=== PATIENT | female | born 1930 | race Caucasian/White ===

== ENCOUNTER 2017-08-12 21:01 | Inpatient (IN) | payer MEDICARE, OTHER ==
[~2017-08-12] VITALS: Ht 162.6 cm; Wt 66.8 kg
[~2017-08-12 21:01] MED LIST: AZEL137S NS; AZIT250 PO; BUDE200IP INH; CALCAVITDA PO; CETI10 PO; CITA20 PO; CLON1 PO; CLOP75 PO; CRUTCH2 USE; ESOM20 PO; EZET10 PO; FENO160 PO; FURO20 PO; HYDACE5 PO; HYDR10 PO; LEVO750 PO; LEVSOD88 PO; LISI20 PO; MOEX15 PO; Mucinex600 MG PO; NIFE30ER PO; Prednisone20 MG PO; SALM50IP INH; TERA5 PO; TIOT18 INH; TRAZ50 PO; VERA180ERB PO; VERAPAMIL SR240 MG PO; VITAMINS
[2017-08-12 22:20] LABS: BASOPHILS ABSOLUTE AUTO 0.02 K/mm3 (0.00-0.23); BASOPHILS PERCENT AUTO 0 % (0-2); EOSINOPHILS ABSOLUTE AUTO 0.05 K/mm3 (0.00-0.68); EOSINOPHILS PERCENT AUTO 1 % (0-6); Hematocrit 34.4 % (33.0-51.0); Hemoglobin 10.6 g/dL (11.5-16.0); IMMATURE GRAN ABSOLUTE AUTO 0.01 K/mm3 (0.00-0.10); IMMATURE GRAN PERCENT AUTO 0 % (0-1); LYMPHOCYTES ABSOLUTE AUTO 0.65 K/mm3 (0.84-5.20); LYMPHOCYTES PERCENT AUTO 11 % (21-46); MONOCYTES ABSOLUTE AUTO 1.11 K/mm3 (0.16-1.47); MONOCYTES PERCENT AUTO 19 % (4-13); Mean Corpuscular HGB 26.6 pg (26.0-34.0); Mean Corpuscular HGB Conc 30.8 g/dL (31.5-36.5); Mean Corpuscular Volume 86 fL (80-100); Mean Platelet Volume 9.9 fL (9.1-12.4); NEUTROPHILS ABSOLUTE AUTO 3.92 K/mm3 (1.96-9.15); NEUTROPHILS PERCENT AUTO 68 % (41-73); Platelet Count 165 K/mm3 (150-400); RDW Coefficient Variation 17.8 % (11.7-14.2); RDW Standard Deviation 56.9 fL (35.1-46.3); Red Blood Cell Count 3.98 M/mm3 (3.80-5.20); White Blood Cell Count 5.76 K/mm3 (4.00-11.30)
[2017-08-12] MEDS ORDERED: CLOP75 PO (22:20)
[2017-08-12] MEDS ORDERED: CLON1 PO (22:20)
[2017-08-12] MEDS ORDERED: TIOT18 INH (22:20)
[2017-08-12] MEDS ORDERED: BIOTIN1000 MCG PO (22:21)
[2017-08-12] MEDS ORDERED: Cranberry400 MG PO (22:21)
[2017-08-12] MEDS ORDERED: MOVE FREE JOIN1 EACH PO (22:22)
[2017-08-12] MEDS ORDERED: VITAMIN D31000 UNIT PO (22:22)
[2017-08-12] MEDS ORDERED: PROBIOTIC1 EAC1 PO (22:23)
[2017-08-12] MEDS ORDERED: EQ SENNA-S TAB1 EACH PO (22:23)
[2017-08-12] MEDS ORDERED: SALM50IP INH (22:24)
[2017-08-12] MEDS ORDERED: ESOM20 PO (22:25)
[2017-08-12] MEDS ORDERED: TRAZ50 PO (22:25)
[2017-08-12] MEDS ORDERED: Pulmicort Fle180 MCG INH (22:25)
[2017-08-12] MEDS ORDERED: LEVSOD100 PO (22:26)
[2017-08-12] MEDS ORDERED: ALBU90OI6 INH (22:27)
[2017-08-12] MEDS ORDERED: Icaps Areds Fo1 EACH PO (22:28)
[2017-08-12] MEDS ORDERED: FISH OIL 1,2001 EAC4 PO (22:28)
[2017-08-12] MEDS ORDERED: NIFE30ER PO (22:29)
[2017-08-12] MEDS ORDERED: LISI20 PO (22:29)
[2017-08-12] MEDS ORDERED: FURO40 PO (22:29)
[2017-08-12] MEDS ORDERED: OXYGEN (22:30)
[2017-08-12] MEDS ORDERED: Metoprolol Succ25 MG PO (22:30)
[2017-08-12 22:44] LABS: Anion Gap 9 mmol/L (6-16); Blood Urea Nitrogen 17 mg/dL (8-24); CO2, Blood 23 mmol/L (21-32); Calcium, Blood 7.1 mg/dL (8.5-10.1); Chloride, Blood 102 mmol/L (98-108); Creatinine, Blood 1.13 mg/dL (0.40-1.00); Glomerular Filtration Rate 48 (60-); Glucose, Blood 102 mg/dL (70-99); Potassium, Blood 4.7 mmol/L (3.5-5.5); Sodium, Blood 134 mmol/L (136-145); Troponin I <0.015 ng/mL (0.000-0.040)
[2017-08-12 23:34] LABS: Influenza A Negative (NEGATIVE); Influenza B Negative (NEGATIVE)
[2017-08-13] MEDS ORDERED: Citalopram HBr40 MG PO (12:29)
[2017-08-14 05:13] LABS: BASOPHILS PERCENT AUTO 0 % (0-2); EOSINOPHILS PERCENT AUTO 0 % (0-6); Hemoglobin 9.3 g/dL (11.5-16.0); IMMATURE GRAN ABSOLUTE AUTO 0.04 K/mm3 (0.00-0.10); IMMATURE GRAN PERCENT AUTO 1 % (0-1); LYMPHOCYTES ABSOLUTE AUTO 0.61 K/mm3 (0.84-5.20); LYMPHOCYTES PERCENT AUTO 8 % (21-46); MONOCYTES ABSOLUTE AUTO 0.88 K/mm3 (0.16-1.47); MONOCYTES PERCENT AUTO 11 % (4-13); Mean Corpuscular HGB 26.4 pg (26.0-34.0); Mean Corpuscular Volume 85 fL (80-100); Mean Platelet Volume 9.8 fL (9.1-12.4); NEUTROPHILS ABSOLUTE AUTO 6.58 K/mm3 (1.96-9.15); NEUTROPHILS PERCENT AUTO 81 % (41-73); Platelet Count 164 K/mm3 (150-400); RDW Coefficient Variation 17.4 % (11.7-14.2); RDW Standard Deviation 54.4 fL (35.1-46.3); Red Blood Cell Count 3.52 M/mm3 (3.80-5.20); White Blood Cell Count 8.11 K/mm3 (4.00-11.30)
[2017-08-14 05:44] LABS: Bun/Creatinine Ratio 28.2 (12.0-20.0); Creatinine, Blood 1.03 mg/dL (0.40-1.00); Potassium, Blood 4.8 mmol/L (3.5-5.5)
[2017-08-14] MEDS ORDERED: AZIT500 PO (09:33)
[2017-08-14] MEDS ORDERED: (None)20 M1 PO (09:33)
== END 2017-08-14 11:20 | disposition home or self-care (01) | DRG 189 ==
LOC: ER 21:01 → MEDS 08-13 00:18 → ENPENDDIS 08-14 09:00 → MEDS 08-14 11:20
PROVIDERS: Emergency Medicine; Internal Medicine
DX: J96.01 Acute respiratory failure with hypoxia (principal); J44.0 Chronic obstructive pulmonary disease with (acute) lower respiratory infection; E87.1 Hypo-osmolality and hyponatremia; Z99.81 Dependence on supplemental oxygen; J44.1 Chronic obstructive pulmonary disease with (acute) exacerbation; J20.9 Acute bronchitis, unspecified; K21.9 Gastro-esophageal reflux disease without esophagitis; I12.9 Hypertensive chronic kidney disease with stage 1 through stage 4 chronic kidney disease, or unspecified chronic kidney disease; N18.3 Chronic kidney disease, stage 3 (moderate); E03.9 Hypothyroidism, unspecified; F41.9 Anxiety disorder, unspecified; Z66 Do not resuscitate; Z85.528 Personal history of other malignant neoplasm of kidney; Z90.5 Acquired absence of kidney; Z79.02 Long term (current) use of antithrombotics/antiplatelets; Z79.899 Other long term (current) drug therapy; Z87.891 Personal history of nicotine dependence
CPT/HCPCS: 36415; 71046; 80048; 84145; 84484; 85025; 87804; 93005; 93010; 94640; 94760; 96375; 99285; J0456; J2920; J2930; J7050

== ENCOUNTER → 2017-08-21 | Outpatient (CLI) | payer MEDICARE, OTHER ==
[~2017-08-21] MED LIST changes: +(None)20 M1 PO; +ALBU90OI6 INH; +AZIT500 PO; +BIOTIN1000 MCG PO; +COLE1 PO; +Citalopram HBr40 MG PO; +Cranberry400 MG PO; +EQ SENNA-S TAB1 EACH PO; +FISH OIL 1,2001 EAC4 PO; +FURO40 PO; +Icaps Areds Fo1 EACH PO; +LEVSOD100 PO; +MOVE FREE JOIN1 EACH PO; +Metoprolol Succ25 MG PO; +OXYGEN; +PROBIOTIC1 EAC1 PO; +Percocet 5-3251 EACH PO; +Pulmicort Fle180 MCG INH; +VITAMIN D31000 UNIT PO; +Zofran Odt4 MG SL
== END ==
LOC: LAB 10:20
DX: J02.9 Acute pharyngitis, unspecified (principal)
CPT/HCPCS: 87070

== ENCOUNTER 2017-12-25 02:26 | Emergency (ER) | payer MEDICARE, OTHER ==
[~2017-12-25] VITALS: Ht 162.6 cm; Wt 61.7 kg
[~2017-12-25 02:26] MED LIST changes: -COLE1 PO; -Percocet 5-3251 EACH PO; -Zofran Odt4 MG SL
[2017-12-25] MEDS ORDERED: COLE1 PO (03:16)
[2017-12-25] MEDS ORDERED: Zofran Odt4 MG SL (04:46)
[2017-12-25] MEDS ORDERED: Percocet 5-3251 EACH PO (04:46)
== END 2017-12-25 05:45 | disposition home or self-care (01) ==
LOC: ER 02:26
DX: S52.532A Colles' fracture of left radius, initial encounter for closed fracture (principal); S52.602A Unspecified fracture of lower end of left ulna, initial encounter for closed fracture; I10 Essential (primary) hypertension; J44.9 Chronic obstructive pulmonary disease, unspecified; K21.9 Gastro-esophageal reflux disease without esophagitis; Z88.8 Allergy status to other drugs, medicaments and biological substances; Z88.6 Allergy status to analgesic agent; Z88.1 Allergy status to other antibiotic agents; Z88.0 Allergy status to penicillin; Z88.2 Allergy status to sulfonamides; Z79.899 Other long term (current) drug therapy; Z87.891 Personal history of nicotine dependence; W18.30XA Fall on same level, unspecified, initial encounter
CPT/HCPCS: 25605; 73100; 73110; 96361; 96374; 99152; 99284; J1885; J7030

== ENCOUNTER 2017-12-27 10:58 | Emergency (ER) | payer MEDICARE, OTHER ==
[~2017-12-27] VITALS: Ht 162.6 cm; Wt 62.6 kg
[~2017-12-27 10:58] MED LIST changes: +COLE1 PO; +Percocet 5-3251 EACH PO; +Zofran Odt4 MG SL
[2017-12-27] MEDS ORDERED: Percocet 5-3251 EACH PO (12:39)
== END 2017-12-27 12:50 | disposition home or self-care (01) ==
LOC: ER 10:58
DX: S52.532D Colles' fracture of left radius, subsequent encounter for closed fracture with routine healing (principal); X58.XXXD Exposure to other specified factors, subsequent encounter; Z88.5 Allergy status to narcotic agent; Z88.8 Allergy status to other drugs, medicaments and biological substances; Z88.0 Allergy status to penicillin; Z88.2 Allergy status to sulfonamides; Z88.1 Allergy status to other antibiotic agents; Z79.899 Other long term (current) drug therapy; I10 Essential (primary) hypertension; J44.9 Chronic obstructive pulmonary disease, unspecified; K21.9 Gastro-esophageal reflux disease without esophagitis; Z87.891 Personal history of nicotine dependence

== ENCOUNTER 2017-12-28 01:09 | Emergency (ER) | payer MEDICARE, OTHER ==
[~2017-12-28] VITALS: Ht 162.6 cm; Wt 64.4 kg
== END 2017-12-28 03:10 | disposition home or self-care (01) ==
LOC: ER 01:09
DX: S09.90XA Unspecified injury of head, initial encounter (principal); S52.532D Colles' fracture of left radius, subsequent encounter for closed fracture with routine healing; W01.198A Fall on same level from slipping, tripping and stumbling with subsequent striking against other object, initial encounter; Z88.5 Allergy status to narcotic agent; Z88.8 Allergy status to other drugs, medicaments and biological substances; Z88.2 Allergy status to sulfonamides; Z88.1 Allergy status to other antibiotic agents; Z79.899 Other long term (current) drug therapy; I10 Essential (primary) hypertension; J44.9 Chronic obstructive pulmonary disease, unspecified; Z87.891 Personal history of nicotine dependence
CPT/HCPCS: 36415; 70450; 73110; 93005; 93010; 99284

== ENCOUNTER → 2019-01-08 | Outpatient (CLI) | payer MEDICARE, OTHER ==
[2019-01-08 16:35] LABS: BASOPHILS ABSOLUTE AUTO 0.03 K/mm3 (0.00-0.23); BASOPHILS PERCENT AUTO 0 % (0-2); EOSINOPHILS ABSOLUTE AUTO 0.15 K/mm3 (0.00-0.68); EOSINOPHILS PERCENT AUTO 2 % (0-6); Hematocrit 34.8 % (33.0-51.0); Hemoglobin 11.2 g/dL (11.5-16.0); IMMATURE GRAN ABSOLUTE AUTO 0.02 K/mm3 (0.00-0.10); IMMATURE GRAN PERCENT AUTO 0 % (0-1); LYMPHOCYTES ABSOLUTE AUTO 0.79 K/mm3 (0.84-5.20); LYMPHOCYTES PERCENT AUTO 10 % (21-46); MONOCYTES ABSOLUTE AUTO 1.49 K/mm3 (0.16-1.47); MONOCYTES PERCENT AUTO 19 % (4-13); Mean Corpuscular HGB 28.8 pg (26.0-34.0); Mean Corpuscular HGB Conc 32.2 g/dL (31.5-36.5); Mean Corpuscular Volume 90 fL (80-100); Mean Platelet Volume 10.1 fL (9.1-12.4); NEUTROPHILS ABSOLUTE AUTO 5.54 K/mm3 (1.96-9.15); NEUTROPHILS PERCENT AUTO 69 % (41-73); Platelet Count 230 K/mm3 (150-400); RDW Coefficient Variation 13.6 % (11.7-14.2); RDW Standard Deviation 44.9 fL (35.1-46.3); Red Blood Cell Count 3.89 M/mm3 (3.80-5.20); White Blood Cell Count 8.02 K/mm3 (4.00-11.30)
[2019-01-08 16:39] LABS: Bun/Creatinine Ratio 18.7 (12.0-20.0); Calcium, Blood 8.5 mg/dL (8.5-10.1); Creatinine, Blood 1.5 mg/dL (0.40-1.00); Potassium, Blood 4.7 mmol/L (3.5-5.5)
== END | disposition home or self-care (01) ==
LOC: LAB EV 16:29 → LAB SHORT 16:29
PROVIDERS: Family Medicine
DX: J18.0 Bronchopneumonia, unspecified organism (principal)
CPT/HCPCS: 80048; 85025; 87040

== ENCOUNTER 2019-08-21 13:15 | Inpatient (IN) | payer MEDICARE, OTHER ==
[~2019-08-21] VITALS: Ht 162.6 cm; Wt 65.8 kg
[~2019-08-21 13:15] MED LIST changes: -ALBU90OI6 INH; -Citalopram HBr40 MG PO; -Cranberry400 MG PO; -FURO40 PO; -LEVSOD100 PO; -Metoprolol Succ25 MG PO; -Pulmicort Fle180 MCG INH; -VITAMIN D31000 UNIT PO
[2019-08-21 13:42] LABS: BASOPHILS ABSOLUTE AUTO 0.02 K/mm3 (0.00-0.23); BASOPHILS PERCENT AUTO 0 % (0-2); EOSINOPHILS ABSOLUTE AUTO 0.09 K/mm3 (0.00-0.68); EOSINOPHILS PERCENT AUTO 1 % (0-6); Hematocrit 35.6 % (33.0-51.0); IMMATURE GRAN ABSOLUTE AUTO 0.02 K/mm3 (0.00-0.10); IMMATURE GRAN PERCENT AUTO 0 % (0-1); LYMPHOCYTES PERCENT AUTO 20 % (21-46); MONOCYTES ABSOLUTE AUTO 1.07 K/mm3 (0.16-1.47); MONOCYTES PERCENT AUTO 14 % (4-13); Mean Corpuscular HGB 29.3 pg (26.0-34.0); Mean Corpuscular HGB Conc 30.9 g/dL (31.5-36.5); Mean Corpuscular Volume 95 fL (80-100); Mean Platelet Volume 10.4 fL (9.1-12.4); NEUTROPHILS ABSOLUTE AUTO 4.97 K/mm3 (1.96-9.15); NEUTROPHILS PERCENT AUTO 65 % (41-73); Platelet Count 222 K/mm3 (150-400); RDW Coefficient Variation 13.9 % (11.7-14.2); RDW Standard Deviation 47.3 fL (35.1-46.3); Red Blood Cell Count 3.76 M/mm3 (3.80-5.20); White Blood Cell Count 7.67 K/mm3 (4.00-11.30)
[2019-08-21 14:01] LABS: Albumin, Blood 3.4 g/dL (3.4-5.0); Albumin/Globulin Ratio 0.9 (0.8-1.8); Bilirubin, Total 0.3 mg/dL (0.1-1.0); Bun/Creatinine Ratio 20.5 (12.0-20.0); Calcium, Blood 8.8 mg/dL (8.5-10.1); Creatinine, Blood 1.61 mg/dL (0.40-1.00); Globulin, Blood 3.6 g/dL (2.2-4.0); Potassium, Blood 4.3 mmol/L (3.5-5.5)
[2019-08-21 14:30] LABS: Troponin I 4.34 ng/mL (0.000-0.040)
[2019-08-21] MEDS ORDERED: CLON1 PO (15:35)
[2019-08-21] MEDS ORDERED: CLOP75 PO (15:35)
[2019-08-21] MEDS ORDERED: Metoprolol Succ25 MG PO (15:35)
[2019-08-21] MEDS ORDERED: Citalopram HBr40 MG PO (15:36)
[2019-08-21] MEDS ORDERED: EUTHYROX88 MCG PO (15:36)
[2019-08-21] MEDS ORDERED: NIFE30ER PO (15:37)
[2019-08-21] MEDS ORDERED: FURO40 PO (15:39)
[2019-08-21] MEDS ORDERED: CALC.25 PO (15:41)
[2019-08-21 15:50] LABS: International Normalized Ratio 0.98; Prothrombin Time Results 10.5 Sec (9.7-11.5)
--- NOTE | 2019-08-21 16:35 | NUR ---
Echocardiogram completed.
[2019-08-21] MEDS ORDERED: TIOT18 INH (17:36)
[2019-08-21] MEDS ORDERED: VITAMIN D31000 UNIT PO (17:36)
[2019-08-21] MEDS ORDERED: Cranberry400 MG PO (17:36)
[2019-08-21] MEDS ORDERED: SALM50IP INH (17:37)
[2019-08-21] MEDS ORDERED: ALBU90OI6 INH (17:38)
[2019-08-21] MEDS ORDERED: Nexium40 MG PO (17:38)
[2019-08-21] MEDS ORDERED: Pulmicort Fle180 MCG INH (17:38)
[2019-08-21] MEDS ORDERED: Aranesp40 MCG/11 SC (17:44)
[2019-08-21] MEDS ORDERED: MAGNESIUM OXID500 MG PO (17:45)
[2019-08-21] MEDS ORDERED: ASCO500 PO (17:45)
[2019-08-21] MEDS ORDERED: Biotin1 MG PO (17:45)
[2019-08-21] MEDS ORDERED: CALCITRATE200 MG PO (17:46)
[2019-08-21] MEDS ORDERED: CENTRUM SILVER1 EAC2 PO (17:46)
--- NOTE | 2019-08-21 19:16 | NUR ---
TO ICU 2 FROM ER 1820, DENIES CHEST PAIN AT THIS TIME, REPORTS MILD SOB. VSS, HR 70'S SINUS, LS CLEAR, BT+, NO EDEMA NOTED, PPP. PT ALERT AND ORIENTED X4, APPROPRIATE AND COOPERATVE. HEPARIN INFUSING AT 13U/KG/HR FOR DOSING WEIGHT OF 63. PT GIVEN DINNER, WILL BE NPO AFTER MIDNIGHT FOR PLANNED ANGIO IN AM. DAUGHTER IN LAW AT BEDSIDE, REPORT TO ONCOMING SHIFT.
[2019-08-22 05:14] LABS: Hematocrit 30.7 % (33.0-51.0); Hemoglobin 9.5 g/dL (11.5-16.0); Mean Corpuscular HGB 29.7 pg (26.0-34.0); Mean Corpuscular HGB Conc 30.9 g/dL (31.5-36.5); Mean Corpuscular Volume 96 fL (80-100); Mean Platelet Volume 10.2 fL (9.1-12.4); Platelet Count 178 K/mm3 (150-400); RDW Coefficient Variation 13.7 % (11.7-14.2); RDW Standard Deviation 47.9 fL (35.1-46.3); White Blood Cell Count 5.85 K/mm3 (4.00-11.30)
[2019-08-22 05:36] LABS: Anion Gap 5 mmol/L (6-16); Blood Urea Nitrogen 33 mg/dL (8-24); Bun/Creatinine Ratio 18.5 (12.0-20.0); CHOL/HDL RATIO 3.8; CO2, Blood 26 mmol/L (21-32); Calcium, Blood 8.3 mg/dL (8.5-10.1); Chloride, Blood 107 mmol/L (98-108); Cholesterol 157 mg/dL (50-200); Creatinine, Blood 1.78 mg/dL (0.40-1.00); Glomerular Filtration Rate 29 (60-); Glucose, Blood 102 mg/dL (70-99); HDL Cholesterol 41 mg/dL (>39); LDL/HDL RATIO 2.3; Low Density Lipoprotein Chol 93 mg/dL (0-110); Potassium, Blood 4.3 mmol/L (3.5-5.5); Sodium, Blood 138 mmol/L (136-145); Triglycerides 117 mg/dL (30-160); Very Low Density Lipoprot Chol 23 mg/dL (6-32)
--- NOTE | 2019-08-22 08:28 | NUR ---
CARE ASSUMED ASSESSMENT COMPLETED, PT DENIES CHEST PAIN/PRESSURE AND SOB AT THIS TIME, DENIES DISCOMFORT. VSS, HR 60'S, REGULAR. HEPARIN INFUSING PER ORDERS AT 14U/KG/HR. LABS DRAWN, PT ASSISTED TO BR TO VOID WITHOUT DIFFICULTY, GAIT STEADY. PT BACK IN BED RESTING, NPO FOR PROCEDURE TODAY. DENIES NEEDS, HAS TALKED IWTH FAMILY ON THE PHONE, DAUGHTER IN LAW INTERMITTENTLY IN ROOM.
--- NOTE | 2019-08-22 09:05 | NUR ---
PROVIDER VISIT DR. BILL AND DR. HINSON IN TO SEE PATIENT AND DISCUSS PLAN. PT AGREEABLE TO ANGIOGRAM WITH STENTING AFTER SPEAKING WITH DOCTORS.
--- NOTE | 2019-08-22 10:48 | NUR ---
UPDATE ATIVAN ADMINISTERED PER ORDERS, PT THEN SLEPT, VSS. TO HEART CENTER AT THIS TIME FOR ANGIOGRAM, PT HAS REMAINED NPO EXCEPT FOR MORNING MEDS WITH A SIP OF WATER.
--- NOTE | 2019-08-22 12:56 | NUR ---
BACK FROM POWER PLANT TECHNICIAN AT 1225, ALERT, ORIENTED X4, VSS, HR 80'S. HEPARIN REMAINS OFF PER NESHA ALBERTO INFUSING AT 75ML/HR, LASIX ADMINISTERED PER ORDERS. PT UP TO BR WITH SBA, GAIT STEADY. PT AWARE OF RADIAL ACCESS PRECAUTIONS, IS COMPLIANT. TR BAND AND WRIST IMMOBILIZER IN PLACE. 1ML AIR REMOVED PT'S HAND IS DUSKY AND COOL, RADIAL PULSE 2+ AFTER REMOVING 1ML AIR, WILL MONITOR CLOSELY. NO OOZING AFTER 10 MINUTES OF AIR REMOVAL, COLOR TO R HAND PINK. DAUGHTER IN LAW AT BEDSIDE.
--- NOTE | 2019-08-22 15:04 | NUR ---
UPDATE PT HAS BEEN RESTING SINCE ARRIVAL FROM TUNNEL WORKER, VSS. REMOVING TR BAND PER PROTOCOL. PT ASSISTED TO BR WITH SBA, GAIT STEADY. PT DENIES CP AND SOB.
--- NOTE | 2019-08-22 15:36 | NUR ---
UPDATE DURING DEFLATION OF TR BAND, SOME BRUISING AND A SMALL HEMATOMA WERE NOTED PROXIMAL TO THE TR BAND. REVENUE CYCLE MANAGER NOTIFIED, AT BEDSIDE TO ASSESS WITH THIS RN. TR BAND REMOVED AND PLACED 3CM PROXIMAL TO ORIGINAL PLACEMENT, REINFLATED WITH 7ML AIR. PULSES 2+ BOTH PROXIMAL AND DISTAL TO BAND, CMS WNL, WILL CONTINUE TO MONITOR. VSS, PT DENIES C/O.
--- NOTE | 2019-08-22 18:10 | NUR ---
UPDATE DR. HINSON AT BEDSIDE AT 1600, TR BAND REMOVED AND ASSESS BY DOCTOR, REPLACED WITH 15ML AIR, LEISA BANDAGE WITH PRESSURE TO ARM PROXIMAL TO TR BAND PER DOCTOR. LEISA REMOVED AFTER 30 MINUTES PER INSTRUCTIONS, HEMATOMA APPEARS UNCHANGED, EDGES MARKED. BEGAN DEFLATING TR BAND AGAIN AT 1700 PER 'S INSTRUCTIONS, NO ADDITIONAL BLEEDING NOTED. VSS, PT DENIES CHEST PAIN/PRESSURE/SOB, WILL CONTINUE TO DEFLATE TR BAND PER PROTOCOL. PT TOLERATED DINNER WELL, AMBULATES TO BR WITH SBA WITHOUT DIFFICULTY, DAUGHTER IN LAW AT BEDSIDE.
--- NOTE | 2019-08-22 18:36 | NUR ---
END OF SHIFT TR BAND DEFLATION COMPLETED AT 1835, NO ADDITIONAL BLEEDING OR HEMATOMA FORMATION NOTED. BAND AND WRIST IMMOBILIZER REMAIN ON, CMS TO DISTAL R EXTREM WNL. VSS, PT DENIES CHEST PAIN/PRESSURE AND SOB, ALERT AND ORIENTED X4. REPORT TO ONCOMING SHIFT.
--- NOTE | 2019-08-22 22:41 | NUR ---
TR BAND REMOVED HEMATOMA AREA MARKED.
[2019-08-23 03:38] LABS: BASOPHILS ABSOLUTE AUTO 0.02 K/mm3 (0.00-0.23); BASOPHILS PERCENT AUTO 0 % (0-2); EOSINOPHILS ABSOLUTE AUTO 0.13 K/mm3 (0.00-0.68); EOSINOPHILS PERCENT AUTO 2 % (0-6); Hematocrit 31.6 % (33.0-51.0); Hemoglobin 9.5 g/dL (11.5-16.0); IMMATURE GRAN ABSOLUTE AUTO 0.01 K/mm3 (0.00-0.10); IMMATURE GRAN PERCENT AUTO 0 % (0-1); LYMPHOCYTES ABSOLUTE AUTO 1.17 K/mm3 (0.84-5.20); LYMPHOCYTES PERCENT AUTO 21 % (21-46); MONOCYTES ABSOLUTE AUTO 1.23 K/mm3 (0.16-1.47); MONOCYTES PERCENT AUTO 22 % (4-13); Mean Corpuscular HGB 29.4 pg (26.0-34.0); Mean Corpuscular HGB Conc 30.1 g/dL (31.5-36.5); Mean Corpuscular Volume 98 fL (80-100); Mean Platelet Volume 10.4 fL (9.1-12.4); NEUTROPHILS ABSOLUTE AUTO 3.05 K/mm3 (1.96-9.15); NEUTROPHILS PERCENT AUTO 54 % (41-73); Platelet Count 161 K/mm3 (150-400); RDW Coefficient Variation 13.6 % (11.7-14.2); RDW Standard Deviation 48.7 fL (35.1-46.3); Red Blood Cell Count 3.23 M/mm3 (3.80-5.20); White Blood Cell Count 5.61 K/mm3 (4.00-11.30)
[2019-08-23 03:56] LABS: Albumin, Blood 2.7 g/dL (3.4-5.0); Anion Gap 6 mmol/L (6-16); Blood Urea Nitrogen 28 mg/dL (8-24); Bun/Creatinine Ratio 17.1 (12.0-20.0); CO2, Blood 27 mmol/L (21-32); Chloride, Blood 107 mmol/L (98-108); Creatinine, Blood 1.64 mg/dL (0.40-1.00); Glomerular Filtration Rate 31 (60-); Glucose, Blood 92 mg/dL (70-99); Phosphorus, Blood 4.4 mg/dL (2.5-4.9); Potassium, Blood 4.1 mmol/L (3.5-5.5); Sodium, Blood 140 mmol/L (136-145)
--- NOTE | 2019-08-23 07:15 | NUR ---
ASSUMED CARE PT. ALERT AND ORIENTED THIS AM. DENIES ANY CHEST PAIN OR PRESSURE AT THIS TIME. PT. HAS BRUISE THAT IS OUTLINED ON RIGHT WRIST S/P TR BAND REMOVAL. NO SWELLING. TENDER TO TOUCH. CURRENTLY ON 2LNC, REPORTS SHE USUALLY JUST WEARS OXYGEN AT NIGHT. PT. TO HAVE LASIX THIS AM.AM CARE PROVIDED, FAMILY AT BEDSIDE. PT. VSS THIS AM, BED IN LOW POSITION AND CALL LIGHT IN REACH.
--- NOTE | 2019-08-23 07:39 | NUR ---
EKG SINCE PT IS NO LONGER HAVING CHEST PAIN NO EKG IS NEEDED PER DR. BRYANT.
--- NOTE | 2019-08-23 08:35 | NUR ---
UPDATE PT. UP TO BEDSIDE TOILET TWICE SINCE LASIX ADMIN. PT. GETS VERY SOB WITH EXCERTION AND HR INCREASES TO 130S. PT ALSO C/O CHEST PAIN WITH EXCERTION. REPEAT EKG DONE. PAGE OUT TO DR. BRYANT TO UPDATE.
--- NOTE | 2019-08-23 09:02 | NUR ---
RETURNED CALL FROM DR. BRYANT UPDATED ON PT CONDITION. PER DR. BRYANT CALL DR. Ramos FOR REEVAL
--- NOTE | 2019-08-23 10:09 | NUR ---
DR. HINSON AT BEDSIDE PLANS FOR CHEST XRAY, BNP, AND ADDITIONAL LASIX. PT. HAS NO CHEST PAIN WHEN RESTING IN BED. PLANS FOR TELEPHONE ORDER CLERK TOMORROW.
--- NOTE | 2019-08-23 13:10 | NUR ---
UPDATE PT. UP FREQUENTLY TO THE BEDSIDE COMMODE. TOLERATING BETTER THIS AFTERNOON, BUT DOES BECOME SOB WITH EXCERTION. HAS DENIED CHEST PAIN WHILE AT REST. BED BATH GIVEN, DR. BILL IN TO SEE PT. VSS AT THIS TIME. NADN. CALL LIGHT IN REACH.
--- NOTE | 2019-08-23 14:00 | NUR ---
ASSUMED CARE ASSUMED CARE OF PT AT 1400. REPORT RECEIVED FROM FRANCISCO OLSON. PT SLEEPING, AROUSES EASILY TO VERBAL STIMULUS. DENIES ANY CHEST PAIN, NAUSEA, SHORTNESS OF BREATH AT THIS TIME. VITAL SIGNS STABLE AT THIS TIME. R WRIST/FOREARM BRUISING NOTED. IV SALINE LOCKED. PT USING CALL LIGHT FOR NEEDS. WILL CONTINUE TO MONITOR PT CLOSELY.
--- NOTE | 2019-08-23 14:01 | NUR ---
REPORT TO OLGA SINGH
--- NOTE | 2019-08-23 15:27 | NUR ---
Second attempt to visit. Pt is sleeping soundly again and getting the rest she needs. I did not disturb her. Spoke with RN. No urgent Palliative Care needs have been identified as pt has done well with advanced care planning and discussing it with her family prior to admit. I will try to see her on Monday for a supportive/social visit if possible.
--- NOTE | 2019-08-23 18:22 | NUR ---
SHIFT SUMMARY PT CONTINUES TO DENY CHEST PAIN, PRESSURE OR SHORTNESS OF BREATH. VITAL SIGNS STABLE. R RADIAL ACCESS HEMATOMA SITE STABLE. PT HAS BEEN UP WITH STANDBY ASSIST TO VOID WITHOUT DIFFICULTY. PT USES CALL LIGHT APPROPRIATELY FOR NEEDS. IV SALINE LOCKED. PLAN FOR HEALTHCARE ANALYST TOMORROW. WILL CONTINUE TO MONITOR PT AND GIVE HANDOFF REPORT TO ONCOMING RN WHEN AVAILABLE.
--- NOTE | 2019-08-23 19:15 | NUR ---
ASSUMED CARE OF PT, BEDSIDE REPORT RECEIVED, PT RESTING QUIETLY RECLINING IN BED, DENIES N/V, DENIES NUMBNESS/TINGLING OTHER THAN TOES WHICH SHE REPORTS BASELINE, DENIES SOB/DYSPNEA WHILE AT REST, ADMITS TO SOME DYSPNEA WITH EXERTION, DENIES CP/PRESSURE. UP TO TOILET IN ROOM WITH STEADY GAIT, HEART RATE IS NOTED TO INCREASE WITH INCREASED ACTIVITY FROM 60S TO 80S, MILD INCREASED WORK OF BREATHING IS VISIBLE, PT RECOVERS QUICKLY ON RETURN TO BED. LUNGS CLEAR WITH DIM BASES BILAT, RATE HIGH TEENS TO LOW 20S, SATS 99% WITH OXYGEN VIA NC AT 2 L/MIN, PT IS SPEAKING IN FULL SENTENCES. HRR, SINUS ON MONITOR, BBB, PULSES FULL X 4 EXTREMITIES, NO EDEMA IS NOTED A THIS TIME, SKIN PWD, PRESSURES MAINTAINING, RIGHT RADIAL ACCESS SITE REVIEWED WITH OFFGOING RN, SITE REMAINS STABLE THROUGHOUT DAY, BRUISING IS NOTED WITHIN 1 FINGERWIDTH OF EDGE OF LINES OF DEMARKATION, ARM IS SOFT. ABD SOFT, PT REPORTS ONGOING TROUBLE DIARRHEA FOR YEARS, STATES "SO MANY TESTS" AND THAT NO DIAGNOSIS HAS BEEN REACHED OF THIS TIME, NO TENDERNESS WITH PALPATION, ACTIVE BOWEL TONES ARE NOTED. VOIDS CLEAR YELLOW URINE WITHOUT DIFFICULTY. IV ACCESS NOTED TO LEFT AC AND RIGHT FOREARM, SEE VASCULAR ACCESS CHARTING.
[2019-08-24 03:37] LABS: BASOPHILS ABSOLUTE AUTO 0.01 K/mm3 (0.00-0.23); BASOPHILS PERCENT AUTO 0 % (0-2); EOSINOPHILS ABSOLUTE AUTO 0.06 K/mm3 (0.00-0.68); EOSINOPHILS PERCENT AUTO 1 % (0-6); Hematocrit 28.8 % (33.0-51.0); Hemoglobin 9.3 g/dL (11.5-16.0); IMMATURE GRAN ABSOLUTE AUTO 0.01 K/mm3 (0.00-0.10); IMMATURE GRAN PERCENT AUTO 0 % (0-1); LYMPHOCYTES PERCENT AUTO 12 % (21-46); MONOCYTES ABSOLUTE AUTO 1.14 K/mm3 (0.16-1.47); MONOCYTES PERCENT AUTO 22 % (4-13); Mean Corpuscular HGB 30.6 pg (26.0-34.0); Mean Corpuscular HGB Conc 32.3 g/dL (31.5-36.5); Mean Corpuscular Volume 95 fL (80-100); Mean Platelet Volume 10.7 fL (9.1-12.4); NEUTROPHILS ABSOLUTE AUTO 3.34 K/mm3 (1.96-9.15); NEUTROPHILS PERCENT AUTO 65 % (41-73); Platelet Count 146 K/mm3 (150-400); RDW Coefficient Variation 13.6 % (11.7-14.2); RDW Standard Deviation 46.2 fL (35.1-46.3); Red Blood Cell Count 3.04 M/mm3 (3.80-5.20); White Blood Cell Count 5.16 K/mm3 (4.00-11.30)
[2019-08-24 04:00] LABS: Albumin, Blood 2.8 g/dL (3.4-5.0); Anion Gap 7 mmol/L (6-16); Blood Urea Nitrogen 29 mg/dL (8-24); Bun/Creatinine Ratio 18.4 (12.0-20.0); CO2, Blood 26 mmol/L (21-32); Calcium, Blood 8.5 mg/dL (8.5-10.1); Chloride, Blood 103 mmol/L (98-108); Creatinine, Blood 1.58 mg/dL (0.40-1.00); Glomerular Filtration Rate 33 (60-); Glucose, Blood 104 mg/dL (70-99); Magnesium, Blood 1.6 mg/dL (1.6-2.4); Phosphorus, Blood 3.8 mg/dL (2.5-4.9); Sodium, Blood 136 mmol/L (136-145)
--- NOTE | 2019-08-24 06:41 | NUR ---
PT RESTS QUIETLY THROUGHOUT SHIFT, CONTINUES WITH SHORTNESS OF BREATH WITH EXERTION, SATS MAINTAIN WITH OXYGEN AT 2 L/MIN VIA NC, RATE REMAINS HIGH TEENS LOW 20S. HRR, CONTINUES SINUS WITH RATE 60S AT REST AND 80S WITH UP IN ROOM, NO EDEMA, PULSES REMAIN FULL, BRUISING TO RIGHT FOREARM REMAINS STABLE, ARM REMAINS SOFT. VOIDS WITHOUT DIFFICULTY, CONTINUES TO HAVE DIARRHEA WITH UP TO BATHROOM HOWEVER SHE STATES THAT THIS HAS BEEN A CHRONIC ISSUE FOR HER FOR THE LAST 2.5 YEARS AND THAT SHE HAS HAD MULTIPLE TESTS. SHE HAS TURNED AND REPOSITIONED HERSELF WELL THROUGHOUT THIS SHIFT.
--- NOTE | 2019-08-24 07:42 | NUR ---
ASSUMED CARE: RECEIVED BEDSIDE REPORT FROM NOC RN. PT IS LYING IN BED TALKING WITH STAFF DURING REPORT. NO ACUTE DISTRESS NOTED, EVEN AND UNLABORED BREATHING NOTED. REVIEWED LABS AND ORDERS. WILL CONTINUE TO MONITOR AND ASSESS FRUTHER. CALL LIGHT IN REACH.
--- NOTE | 2019-08-24 17:02 | NUR ---
SHIFT SUMMARY: NO ACUTE CHANGES NOTED T/O THE SHIFT. PT HAS BEEN RESTING OFF AND ON T/O THE SHIFT. PT HAS BEEN UP TO THE TOILET AND UP IN THE ROOM WITH SBA T/O THE DAY. SOME SOB NOTED WITH ANY EXERSION, BUT PT DENIES ANY LIGHTHEADEDNESS OR DIZZYNESS. WILL CONTINUE TO MONITOR AND REPORT TO ON COMING RN. D/T PT NOT GOING TO THE ANGIOGRAM TODAY PT STATUS WAS CHANGED TO PCU.
--- NOTE | 2019-08-24 19:00 | NUR ---
ASSUMED CARE OF PT, BEDSIDE REPORT RECEIVED. PT APPEARS TO BE SLEEPING AT THIS TIME, HEART RATE AND OXYGEN SATURATION IS STABLE AT THIS TIME, WILL FURTHER ASSESS WITH HS MEDS AND VITAL SIGNS
--- NOTE | 2019-08-24 20:30 | NUR ---
PT IS AWAKE AND DANGLING SPEAKING WITH FAMILY ON PHONE, SENTENCES ARE NOTED FULL, NO VISIBLE INCREASED WORK OF BREATHING, LUNGS ARE CLEAR THROUGHOUT WITH DIM BASES BILAT, SHE DOES ADMIT TO CONTINUING TO FEEL SHORT OF BREATH HOWEVER STATES THAT THIS IS IMPROVED FROM YESTERDAY, SATS ARE HIGH 90S WITH OXYGEN AT 2 L/MIN VIA NC. HRR, SINUS ON MONITOR, RATE 60S, PRESSURE MAINTAINING, NO EDEMA IS NOTED AT THIS TIME, BRISK CAP REFILL, RIGHT RADIAL ACCESS SITE CONTINUES STABLE, DRESSING REMAINS CDI, PT DENIES CP/PRESSURE, DOES ADMIT TO RIGHT SHOULDER FEELING SORE INSIDE OF THE SHOULDER JOINT WITH MOVEMENT, SHE RATES THIS 4/10 AND REPORTS TOLERABLE LEVEL OF PAIN FOR HER, RELIEVED WITH REST AND POSITIONING. ABD REMAINS SOFT, ACTIVE BOWEL TONES ARE NOTED, PT STATES THAT SHE IS FEELING "BLOATED" BUT BELIEVES THAT SHE HAS NOT BEEN PASSING FLATUS MUCH SHE DOES AT HOME, SHE DOES STATE THAT HER ACTIVITY LEVEL IS GREATLY DECREASED.
[2019-08-25 03:58] LABS: Albumin, Blood 2.7 g/dL (3.4-5.0); Anion Gap 7 mmol/L (6-16); Blood Urea Nitrogen 28 mg/dL (8-24); Bun/Creatinine Ratio 20.3 (12.0-20.0); CO2, Blood 26 mmol/L (21-32); Calcium, Blood 8.6 mg/dL (8.5-10.1); Chloride, Blood 103 mmol/L (98-108); Creatinine, Blood 1.38 mg/dL (0.40-1.00); Glomerular Filtration Rate 38 (60-); Glucose, Blood 97 mg/dL (70-99); Phosphorus, Blood 4.1 mg/dL (2.5-4.9); Potassium, Blood 4.1 mmol/L (3.5-5.5); Sodium, Blood 136 mmol/L (136-145)
--- NOTE | 2019-08-25 07:38 | NUR ---
DR HINSON ROUNDS DR HINSON ROUNDED, UPDATED ON PT STATUS THROUGH THE NIGHT. PER DR HINSON, PLAN TO TAKE PT BACK TO [facility] ON MONDAY. ORDERS RECEIVED FOR PHYSICAL THERAPY EVAL WITH GOAL TO GET PT OOB AND AMBULATING. NO FURTHER CHANGES TO PLAN OF CARE AT THIS TIME. WILL CONT TO MONITOR PT.
--- NOTE | 2019-08-25 10:21 | NUR ---
DR PENA ROUNDS DR PENA ROUNDED, UPDATED ON PT STATUS AND PLAN FOR ANGIO ON MONDAY PER DR HINSON. NO CHANGE TO PLAN OF CARE AT THIS TIME. WILL CONT TO MONITOR PT.
--- NOTE | 2019-08-25 11:42 | NUR ---
SHIFT UPDATE PT RESTING IN BED, REPOSITIONING SELF. PT OOB TO CHAIR ONCE ALREADY THIS SHIFT, OOB SBA D/T CORDS AND LINES. PT CONTINUES TO DENY ANY CHEST PAIN/PRESSURE. PT REMAINS ON 2LPM VIA NC, BREATHING E/U, SOME SOB WITH EXERTION BUT RECOVERS EASILY. VSS, SEE FLOWSHEET. PT AWARE OF PLAN FOR [facility] SLICING MACHINE OPERATOR MONDAY PER DR BRIONES. BED IN LOWEST POSITION, SIDE RAILS RAISED. CALL LIGHT IN REACH. WILL CONT TO MONITOR PT.
--- NOTE | 2019-08-25 18:19 | NUR ---
SHIFT SUMMARY PT SITTING UP IN BED WATCHING TV. PT OOB THROUGHOUT SHIFT TO TOILET AND CHAIR, SBA. VSS, SEE FLOWSHEET. PT CONTINUES TO DENY ANY CHEST PAIN/PRESSURE. PLAN REMAINS FOR [facility] ON MONDAY. NO ACUTE CHANGES THROUGH SHIFT. BED IN LOWEST POSITION, UPPER SIDE RAILS RAISED. CALL LIGHT IN REACH. WILL CONT TO MONITOR PT.
[2019-08-26 03:47] LABS: BASOPHILS ABSOLUTE AUTO 0.02 K/mm3 (0.00-0.23); BASOPHILS PERCENT AUTO 0 % (0-2); EOSINOPHILS ABSOLUTE AUTO 0.09 K/mm3 (0.00-0.68); EOSINOPHILS PERCENT AUTO 2 % (0-6); Hematocrit 29.4 % (33.0-51.0); Hemoglobin 9.3 g/dL (11.5-16.0); IMMATURE GRAN ABSOLUTE AUTO 0.01 K/mm3 (0.00-0.10); IMMATURE GRAN PERCENT AUTO 0 % (0-1); LYMPHOCYTES ABSOLUTE AUTO 0.77 K/mm3 (0.84-5.20); LYMPHOCYTES PERCENT AUTO 15 % (21-46); MONOCYTES ABSOLUTE AUTO 1.04 K/mm3 (0.16-1.47); MONOCYTES PERCENT AUTO 20 % (4-13); Mean Corpuscular HGB 29.8 pg (26.0-34.0); Mean Corpuscular HGB Conc 31.6 g/dL (31.5-36.5); Mean Corpuscular Volume 94 fL (80-100); Mean Platelet Volume 11.1 fL (9.1-12.4); NEUTROPHILS ABSOLUTE AUTO 3.34 K/mm3 (1.96-9.15); NEUTROPHILS PERCENT AUTO 63 % (41-73); Platelet Count 172 K/mm3 (150-400); RDW Coefficient Variation 13.3 % (11.7-14.2); RDW Standard Deviation 45.5 fL (35.1-46.3); Red Blood Cell Count 3.12 M/mm3 (3.80-5.20); White Blood Cell Count 5.27 K/mm3 (4.00-11.30)
[2019-08-26 04:02] LABS: Albumin, Blood 2.9 g/dL (3.4-5.0); Anion Gap 6 mmol/L (6-16); Blood Urea Nitrogen 28 mg/dL (8-24); Bun/Creatinine Ratio 20.4 (12.0-20.0); CO2, Blood 27 mmol/L (21-32); Chloride, Blood 104 mmol/L (98-108); Creatinine, Blood 1.37 mg/dL (0.40-1.00); Glomerular Filtration Rate 39 (60-); Glucose, Blood 93 mg/dL (70-99); Potassium, Blood 4.3 mmol/L (3.5-5.5); Sodium, Blood 137 mmol/L (136-145)
--- NOTE | 2019-08-26 06:05 | NUR ---
PT HAS RESTED QUIETLY THIS SHIFT WITHOUT ANY ACUTE CHANGES. SHE CONTINUES TO GET UP OOB TO BATHROOM WITH SBA FOR LINE MANAGEMENT, SATS CONTINUE TO MAINTAIN WITH OXYGEN AT 2 L/MIN VIA NC AND SHORTNESS OF BREATH IS NOTED WITH ACTIVITY BUT IMPROVES WITH REST. PAIN IS RESOLVED TO RIGHT SHOULDER, BRUISING TO RIGHT FOREARM AT RADIAL ACCESS SITE REMAINS STABLE, PT CONTINUES TO BE COMPLIANT WITH RADIAL ACCESS MOVEMENT RESTRICTIONS. CHRONIC DIARRHEA CONTINUES, PT DID REPORT THAT HER APPETITE WAS "LOW" YESTERDAY. VITALS REMAIN STABLE THROUGHOUT SHIFT, PT DID EXPRESS CONCERN REGARDING BLOOD PRESSURE BEING ELEVATED WITH SYSTOLIC AT 157 HOWEVER FOLLOWING BP WAS 130S SYSTOLIC.
--- NOTE | 2019-08-26 07:53 | NUR ---
CARE ASSUMED ASSESSMENT COMPLETED, VSS, PT DENIES CHEST PAIN/PRESSURE AND SOB. HR 60'S SINUS WITH BBB, BP STABLE. DARK BRUISING TO RIGHT WRIST AT RADIAL ACCESS SITE NOTED, SITE IS SOFT, NON TENDER TO PALPATION, PULSES 2+, CMS WNL. PT ASSISTED WITH ORAL AND DENTURE CARE, SITTING AT BEDSIDE TO EAT BREAKFAST, DENIES NEEDS OR C/O.
--- NOTE | 2019-08-26 10:50 | NUR ---
UPDATE PT NAPPING THIS MORNING, HR 60'S SINUS WITH BBB, PT HAS DENIED C/O CHEST DISCOMFORT/SOB. NO CHANGES NOTED TO RIGHT WRIST. TOLERATED BREAKFAST AND AM MEDS WELL, PT ASLEEP AT THIS TIME.
--- NOTE | 2019-08-26 13:41 | NUR ---
PAL CARE VISIT: [facility] referral received for AD/POLST due to cardiac dx/NSTEMI on admission. Pt well known to me from participation in Pulm Rehab years ago. She is and expresses missing her still very much. She states her step daughter is moving to the area and will be <2 miles from her home. She is relieved and happy about having some family closer to her and states they get along very well. Her son and DIL live locally also but are approx 30 minutes away. Pt lives alone, independently and hopes to remain there until she dies. 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 Observed pt being very mobile in bed. She is smiling and glad for the visit. No nonverbal indicators of pain noted. She denies pain. She has improved color and energy from last week both pre/post stenting in hospital laboratory technician. She anticipates second stent to be done tomorrow. No report of distressing s/s. She appears comfortable and calm with minimal SOBOE with extended conversation. She is getting up to chair and participating well in care, mobilization. Pt has made her wishes clear re: code status and does not want CPR or intubation, which is consistent with her current orders. Planned with pt to return tomorrow. I will ask her if she has completed an advanced directive and/or if she would like to.
--- NOTE | 2019-08-26 15:12 | NUR ---
UPDATE PT TOLERATED LUNCH WELL, CONTINUES TO DENY CHEST DISCOMFORT OR SOB, REMAINS ON 2L/NC. EMS IV REMOVED FROM LEFT AC, PT TO SHOWER, TOLERATED WELL. PT BACK TO BED WITH ASSIST, GAIT STEADY, DENIES OTHER NEEDS AT THIS TIME. BRUISING TO R WRIST UNCHANGED.
--- NOTE | 2019-08-26 18:16 | NUR ---
END OF SHIFT PT HAD AN UNEVENTFUL DAY, DENIED CHEST PAIN/PRESSURE T/O SHIFT. RIGHT WRIST BRISING REMAINS UNCHANGED, CMS WNL. PT TOLERATED MEALS WELL, REMAINS MILDLY SOB WITH ACTIVITY, SPO2 HIGH 90'S ON 2L/NC, LS CLEAR, VSS. PT AWARE AND AGREEABLE TO PLANS FOR SECOND ANGIOGRAM TOMORROW, WILL BE NPO AT MIDNIGHT. HR 50'S-60'S SINUS. FAMILY AT BEDSIDE ON AND OFF, ALSO AWARE OF PLANS FOR ANGIO. REPORT TO ONCOMING SHIFT.
--- NOTE | 2019-08-26 19:10 | NUR ---
ASSUMED CARE OF PT, BEDSIDE REPORT RECEIVED. PT IS RESTING QUIETLY RECLINING IN BED, DENIES NEEDS AT THIS TIME. PCU STATUS, SINUS NA, RATE HIGH 50S NOTED ON MONITOR, PRESSURES HAVE BEEN MAINTAINING. NO VISIBLE INCREASED WORK OF BREATHING IS NOTED AT REST, SKIN IS PWD, PT IS SPEAKING IN FULL SENTENCES. PLAN IS FOR RETURN TO [employer] SALES ENGINEER IN AM, PT IS TO BE NPO AT MIDNOC.
--- NOTE | 2019-08-27 01:15 | NUR ---
ASSUMED CARE OF PT PT AWAKE. UP TO BATHROOM WITH STANDBY ASSIST. VOIDED AND HAD SMALL BM THAT PT FLUSHED BEFORE STAFF COULD SEE. BACK TO BED AND WT DONE. DENIES PAIN OR DISCOMFORT AT THIS TIME.
[2019-08-27 04:25] LABS: Albumin, Blood 2.8 g/dL (3.4-5.0); Anion Gap 6 mmol/L (6-16); Blood Urea Nitrogen 31 mg/dL (8-24); Bun/Creatinine Ratio 23.3 (12.0-20.0); CO2, Blood 26 mmol/L (21-32); Chloride, Blood 105 mmol/L (98-108); Creatinine, Blood 1.33 mg/dL (0.40-1.00); Glomerular Filtration Rate 40 (60-); Glucose, Blood 96 mg/dL (70-99); Phosphorus, Blood 4.7 mg/dL (2.5-4.9); Potassium, Blood 4.6 mmol/L (3.5-5.5); Sodium, Blood 137 mmol/L (136-145)
--- NOTE | 2019-08-27 06:24 | NUR ---
SHIFT SUMMARY PT AWAKE UP TO THE BATHROOM WITH STANDBY ASSIST. BACK TO BED. QUALITY ASSURANCE GROUP LEADER CALL AND WILL BE HERE TO RESEARCH ENGINEER PT SHORTLY. VSS. NO ACUTE CHANGE. REPORT TO ON COMING NURSE
--- NOTE | 2019-08-27 06:57 | NUR ---
PT TO SENIOR SQL SERVER DBA WITH O2, MONITOR AND SENIOR SQL SERVER DBA NURSES
--- NOTE | 2019-08-27 11:29 | NUR ---
0900 SOME SWELLING NOTED SL ABOVE AN BELOW TR SITES. GENTLE MANUAL PRESSURE HELD AND SOME SWELLING EXRESSED. FIRM BELOW W/O ANY FOCUS SITE FOR HEMATOMA NOTED AND SEEMS VENOUS. PT IS NOTE HAVING ANY PAIN OTHER THAN L FA AND THIS HAS BEEN LARGELY RELIEVED BY MORPHINE, SEE EMAR.
--- NOTE | 2019-08-27 11:32 | NUR ---
1050 NO OBVIOUS ARTERIAL HEMATOMA, MORE CONSISTANT WITH VENOUS FLUID SLOWING BUT WILL FOLLOW FOR NOW TO EVALUATE AGAIN BEFORE TR DEFLATED.
--- NOTE | 2019-08-27 12:24 | NUR ---
1200 OVER 15 MIN PERIOD TR BANDS X2 DEFLATED. UPPER BAND REMOVED AND BAND OVER SITE LEFT IN PLACE FOR NOW. NO EVIDENCE OF BLEEDING NOTED AND WILL FOLLOW FREQUENTLY. VSS. PT EDUCATED RE CARE OF SITE AND IS COOPERATIVE.
--- NOTE | 2019-08-27 13:21 | NUR ---
1315 CATH SITE TR BAND REMOVED AND CLEAR TEGRADERM PLACED. SWELLING IMPROVED AND LESS TENDER WITH SLOWED VEINOUS RETURN REASON FOR SWELLING. PT RESTING AND HAS NS AT 50ML ORDERED. WILL FOLLOW STATUS.
--- NOTE | 2019-08-27 15:23 | NUR ---
PT REPORT CALLED TO DOUGH SCALER AND MIXER FOR ROOM 15. PT L TR SITE IS INTACT AND PT INSTUCTIONS UNDERSTOOD FOR F/U CARE OF SITE. PT TO PCU VIA W/C WITH DAUGHTER AND PERSONAL BELONGINGS.
--- NOTE | 2019-08-27 19:38 | NUR ---
PT RECEIVED FROM ICU @1630. PT IS POST ANGIOPLASTY WITH 2 STENTS PLACED ON RCA. ACCESS SITE ON LEFT WRIST WITH CLEAR DRESSING INTACT NO CHANGES NOTED ON THE SITE. NEW BRUISING ON LEFT FOREARM NOTED AREA WAS MARKED TO MONITOR FOR ANY WORSENING PT C/O 5/10 PAIN TYLENOL GIVEN AND EFFECTIVE. PT ALSO HAS BRUISING ON RIGHT FOREARM FROM FIRST ANGIOGRAM DONE 08/24. PT'S HRR NSR ON THE 60'S BP SYSTOLIC 130'S. LUNGS DIMINISHED ON LOWER BASES, DYSPNEA ON EXERTION AND SLIGHT WHEEZING, PT REFUSED BREATHING TREATMENT AT THIS TIME, SATS KEPT ABOVE 90% ON 2L. NO IV FLUIDS ORDERED OF THIS TIME VERIFIED WITH FRANCISCO CUEVAS. PT NOW RESTING IN BED CALL LIGHTS WITHIN REACH, WILL MONITOR, REPORT GIVEN TO ONCOMING SHIFT.
--- NOTE | 2019-08-27 20:52 | NUR ---
PT AAOX4, RESP E/U ON 1.5L NC. SPEAKS IN FULL SENTENCES. DAUGHTER IN LAW IN ROOM AND TO STAY THE NIGHT. STATES SOME DISCOMFORT TO BILAT FORARMS AT ACCESS SITES. STATES THIS IS ONGOING PAIN AND NOT NEW. TREATED PER EMAR. COBAN WRAP TO LFA AND MONITORING BRUISING. L WRIST BANDAGE APPEARS C/D/I.
--- NOTE | 2019-08-28 00:09 | NUR ---
VSS. PT DENIES CP. AAOX4. RESP E/U. UP TO RESTROOM. TELE SINUS NA RATE 53. PT WAS SLEEPING AT THE TIME.
--- NOTE | 2019-08-28 06:43 | NUR ---
NOC SHIFT SUMMARY PT PLEASANT AND COOPERATIVE WITH CARE. DAUGHTER IN LAW SPENT THE NIGHT AND WAS HELPFUL WITH TOILETING PT. VSS. RESP E/U ON NC 1.5L O2. SOME ONGOING PAIN/DISCOMFORT IN LFA RELATED TO PCI ACCESS SITE. BRUISING IS NOTED AND COBAN WAS APPLIED ON PRIOR SHIFT TO ADDRESS THIS. PT SLEPT OFF AND ON THROUGH THE NIGHT. AWAKENS EASILY TO VOICE. NO ACUTE CHANGES NOTED THIS NIGHT. PT PRESENTLY AWAKE AND CONVERSING WITH DAUGHTER IN LAW. APPEARS IN NO ACUTE DISTRESS. WILL CONTINUE TO MONITOR.
--- NOTE | 2019-08-28 07:20 | NUR ---
ASSUMED PATIENT CARE. PATIENT RESTING COMFORTABLY IN BED, NO SIGN OF ACUTE DISTRESS. PATIENT ALERT AND SPEAKING WITH NURSING STAFF. SURGICAL SITES ASSESSED, SCANT DRAINAGE ON WRIST DONE YESTERDAY, NO DRAINAGE ON WRIST DONE MONDAY. BRUISING AND TENDERNESS NOTED ON BOTH FOREARMS.
[2019-08-28 07:52] LABS: Albumin, Blood 3.1 g/dL (3.4-5.0); Anion Gap 4 mmol/L (6-16); Blood Urea Nitrogen 33 mg/dL (8-24); Bun/Creatinine Ratio 22.1 (12.0-20.0); CO2, Blood 28 mmol/L (21-32); Calcium, Blood 8.9 mg/dL (8.5-10.1); Chloride, Blood 100 mmol/L (98-108); Creatinine, Blood 1.49 mg/dL (0.40-1.00); Glomerular Filtration Rate 35 (60-); Glucose, Blood 85 mg/dL (70-99); Phosphorus, Blood 4.9 mg/dL (2.5-4.9); Potassium, Blood 4.3 mmol/L (3.5-5.5); Sodium, Blood 132 mmol/L (136-145)
--- NOTE | 2019-08-28 14:33 | NUR ---
RECEIVED REPORT FROM ERICA KOHLERU RN. PT RECEIVED AT 1330. SETTLED TO ROOM. BED IN LOW POSITION, CALL LITE IN REACH, CALLS APPROP
--- NOTE | 2019-08-28 18:20 | NUR ---
BP 162/74 P 69, RETAKE, 174/70 P 64, CALLED TELE. RUNNING LOW 70'S . HYDRALAZINE GIVEN.
--- NOTE | 2019-08-28 18:43 | NUR ---
PT PLEASANT SINCE ADMIT. DAUGHTER CALLED FOR UPDATE. PT BP ELEVATED THIS MANJU. HYDRAL GIVEN PER EMAR. PT HAS NO OTHER COMPLAINTS AT THIS TIME. BED IN LOW POSITION, CALL LITE IN REACH, CALLS APPROP.
[2019-08-29 05:23] LABS: BASOPHILS ABSOLUTE AUTO 0.02 K/mm3 (0.00-0.23); BASOPHILS PERCENT AUTO 0 % (0-2); EOSINOPHILS PERCENT AUTO 2 % (0-6); Hematocrit 28.5 % (33.0-51.0); IMMATURE GRAN ABSOLUTE AUTO 0.01 K/mm3 (0.00-0.10); IMMATURE GRAN PERCENT AUTO 0 % (0-1); LYMPHOCYTES ABSOLUTE AUTO 0.69 K/mm3 (0.84-5.20); LYMPHOCYTES PERCENT AUTO 15 % (21-46); MONOCYTES ABSOLUTE AUTO 1.01 K/mm3 (0.16-1.47); MONOCYTES PERCENT AUTO 22 % (4-13); Mean Corpuscular HGB 29.5 pg (26.0-34.0); Mean Corpuscular HGB Conc 31.6 g/dL (31.5-36.5); Mean Corpuscular Volume 93 fL (80-100); Mean Platelet Volume 11.4 fL (9.1-12.4); NEUTROPHILS ABSOLUTE AUTO 2.77 K/mm3 (1.96-9.15); NEUTROPHILS PERCENT AUTO 60 % (41-73); Platelet Count 181 K/mm3 (150-400); RDW Coefficient Variation 13.1 % (11.7-14.2); RDW Standard Deviation 44.1 fL (35.1-46.3); Red Blood Cell Count 3.05 M/mm3 (3.80-5.20)
[2019-08-29 05:41] LABS: Albumin, Blood 2.8 g/dL (3.4-5.0); Anion Gap 5 mmol/L (6-16); Blood Urea Nitrogen 32 mg/dL (8-24); Bun/Creatinine Ratio 22.4 (12.0-20.0); CO2, Blood 29 mmol/L (21-32); Calcium, Blood 9.1 mg/dL (8.5-10.1); Chloride, Blood 103 mmol/L (98-108); Creatinine, Blood 1.43 mg/dL (0.40-1.00); Glomerular Filtration Rate 37 (60-); Glucose, Blood 90 mg/dL (70-99); Phosphorus, Blood 4.3 mg/dL (2.5-4.9); Potassium, Blood 4.8 mmol/L (3.5-5.5); Sodium, Blood 137 mmol/L (136-145)
--- NOTE | 2019-08-29 14:40 | NUR ---
PATIENT DC'D TO [facility] VIA WC TRANSPORT. REPORTS GIVEN TO JOSSIE NURSE AT THE FACILITY. PACKET GIVEN TO CLIENT SOLUTIONS MANAGER AND CLONAZEPAM SCRIPT IN PACKET. PATIENT DENIES ANY FURTHER QUESTIONS OR CONCERNS.
[2019-08-29] MEDS ORDERED: NITR.4SL SL (15:06)
[2019-08-29] MEDS ORDERED: PRAV20 PO (15:07)
[2019-08-29] MEDS ORDERED: ASPI81CH PO (15:07)
== END 2019-08-29 14:40 | DRG 246 ==
LOC: ER 13:15 → ICUE 15:50 → ERHOLD 15:50 → ICUE 18:24 → PCU 08-27 15:37 → MEDS 08-28 13:31
PROVIDERS: Emergency Medicine; Hospitalist; Internal Medicine; Internal Medicine Cardiovascular Disease; Pharmacist; ADMIT Internal Medicine
PROC: 4A023N7 Measurement of Cardiac Sampling and Pressure, Left Heart, Percutaneous Approach (ICD-10-PCS; principal; 2019-08-22)
PROC: 027035Z Dilation of Coronary Artery, One Artery with Two Drug-eluting Intraluminal Devices, Percutaneous Approach (ICD-10-PCS; 2019-08-22)
PROC: B211YZZ Fluoroscopy of Multiple Coronary Arteries using Other Contrast (ICD-10-PCS; 2019-08-22)
DX: I21.4 Non-ST elevation (NSTEMI) myocardial infarction (principal); I50.31 Acute diastolic (congestive) heart failure; I13.0 Hypertensive heart and chronic kidney disease with heart failure and stage 1 through stage 4 chronic kidney disease, or unspecified chronic kidney disease; Q60.0 Renal agenesis, unilateral; N18.3 Chronic kidney disease, stage 3 (moderate); J44.9 Chronic obstructive pulmonary disease, unspecified; E03.9 Hypothyroidism, unspecified; R00.1 Bradycardia, unspecified; Z66 Do not resuscitate; D63.1 Anemia in chronic kidney disease
CPT/HCPCS: 36415; 71045; 71046; 76937; 80048; 80053; 80061; 80069; 82947; 83735; 83880; 84443; 84484; 85025; 85027; 85347; 85610; 85730; 93005; 93010; 93306; 93458; 94640; 94760; 96365; 96375; 97110; 97116; 97162; 97530; 99152; 99153; 99285-25; A9270; A9270-GY; C1725; C1753; C1769; C1874; C1887; C1894; C9113; C9600; J0360; J0881; J1644; J1940; J2060; J2250; J2270; J2405; J3010; J7030; J7050; Q9967

== ENCOUNTER → 2020-03-04 | Outpatient (CLI) | payer MEDICARE, OTHER ==
[~2020-03-04] MED LIST changes: +ALBU90OI6 INH; +ARANESP100 MCG/0. INJ; +ASCO500 PO; +Aranesp40 MCG/11 SC; +Aspirin EC81 MG PO; +BUDE.25 INH; +Biotin1 MG PO; +CALC.25 PO; +CALCITRATE200 MG PO; +CEFU250T47 PO; +CENTRUM SILVER1 EAC2 PO; +Citalopram HBr40 MG PO; +Cranberry400 MG PO; +EUTHYROX88 MCG PO; +FURO40 PO; +ISOSORBIDE MONO30 MG PO; +MAGNESIUM OXID500 MG PO; +METO25 PO; +METO25ER PO; +MIRT15 PO; +Metoprolol Succ25 MG PO; +NITR.4SL SL; +Nexium40 MG PO; +ONDA4ODT MM; +PANTOPRAZOLE SO40 M2 PO; +PHENYTOIN SODI300 MG PO; +PRAV20 PO; +Pulmicort Fle180 MCG INH; +RANO500T PO; +SENN187 PO; +SODCHL1 PO; +TRAM50 PO; +VITAMIN D31000 UNIT PO
[2020-03-04 15:36] LABS: Dilantin (Phenytoin), Total 15.4 ug/mL (10.0-20.0)
== END | disposition home or self-care (01) ==
LOC: OLS 13:39 → LAB SHORT 13:39
PROVIDERS: Family Medicine
DX: Z51.81 Encounter for therapeutic drug level monitoring (principal); Z79.899 Other long term (current) drug therapy
CPT/HCPCS: 36415; 80185

== ENCOUNTER 2020-03-09 13:18 | Emergency (ER) | payer MEDICARE, OTHER ==
[~2020-03-09] VITALS: Ht 162.6 cm; Wt 61.2 kg
[~2020-03-09 13:18] MED LIST changes: -ISOSORBIDE MONO30 MG PO; -MIRT15 PO; -ONDA4ODT MM; -RANO500T PO; -SODCHL1 PO; -TRAM50 PO
[2020-03-09 14:26] LABS: BASOPHILS ABSOLUTE AUTO 0.05 K/mm3 (0.00-0.23); BASOPHILS PERCENT AUTO 1 % (0-2); EOSINOPHILS ABSOLUTE AUTO 0.05 K/mm3 (0.00-0.68); EOSINOPHILS PERCENT AUTO 1 % (0-6); Hematocrit 34.9 % (33.0-51.0); Hemoglobin 11.5 g/dL (11.5-16.0); IMMATURE GRAN ABSOLUTE AUTO 0.03 K/mm3 (0.00-0.10); IMMATURE GRAN PERCENT AUTO 0 % (0-1); LYMPHOCYTES ABSOLUTE AUTO 0.91 K/mm3 (0.84-5.20); LYMPHOCYTES PERCENT AUTO 10 % (21-46); MONOCYTES ABSOLUTE AUTO 1.17 K/mm3 (0.16-1.47); MONOCYTES PERCENT AUTO 13 % (4-13); Mean Corpuscular HGB 30.4 pg (26.0-34.0); Mean Corpuscular Volume 92 fL (80-100); Mean Platelet Volume 9.3 fL (9.1-12.4); NEUTROPHILS ABSOLUTE AUTO 6.96 K/mm3 (1.96-9.15); NEUTROPHILS PERCENT AUTO 76 % (41-73); Platelet Count 344 K/mm3 (150-400); RDW Standard Deviation 40.9 fL (35.1-46.3); Red Blood Cell Count 3.78 M/mm3 (3.80-5.20); White Blood Cell Count 9.17 K/mm3 (4.00-11.30)
[2020-03-09 14:37] LABS: Bun/Creatinine Ratio 19.8 (12.0-20.0); Calcium, Blood 8.7 mg/dL (8.5-10.1); Creatinine, Blood 1.21 mg/dL (0.40-1.00); Potassium, Blood 4.4 mmol/L (3.5-5.5)
[2020-03-09] MEDS ORDERED: ONDA4ODT MM (20:25)
== END 2020-03-09 23:23 | disposition short-term general hospital (02) ==
LOC: ER 13:18
PROVIDERS: Physician Assistant
DX: I11.0 Hypertensive heart disease with heart failure (principal); E87.1 Hypo-osmolality and hyponatremia; I50.9 Heart failure, unspecified; I25.2 Old myocardial infarction; K21.9 Gastro-esophageal reflux disease without esophagitis; J44.9 Chronic obstructive pulmonary disease, unspecified; Z88.8 Allergy status to other drugs, medicaments and biological substances; Z88.6 Allergy status to analgesic agent; Z88.0 Allergy status to penicillin; Z88.2 Allergy status to sulfonamides; Z88.1 Allergy status to other antibiotic agents; Z88.4 Allergy status to anesthetic agent; Z79.899 Other long term (current) drug therapy; Z79.02 Long term (current) use of antithrombotics/antiplatelets; Z79.51 Long term (current) use of inhaled steroids; Z87.891 Personal history of nicotine dependence; Z95.5 Presence of coronary angioplasty implant and graft; Z20.828 Contact with and (suspected) exposure to other viral communicable diseases
CPT/HCPCS: 36415; 70450; 80048; 85025; 96361; 96374; 96376; 99284-25; A9270-GY; J2405; J7030; U0002

== ENCOUNTER 2020-04-02 03:20 | Emergency (ER) | payer MEDICARE, OTHER ==
[~2020-04-02] VITALS: Ht 162.6 cm; Wt 61.2 kg
[~2020-04-02 03:20] MED LIST changes: +ISOSORBIDE MONO30 MG PO; +MIRT15 PO; +ONDA4ODT MM; +RANO500T PO; +SODCHL1 PO; +TRAM50 PO
== END 2020-04-02 04:47 | disposition home or self-care (01) ==
LOC: ER 03:20
DX: S00.31XA Abrasion of nose, initial encounter (principal); S00.81XA Abrasion of other part of head, initial encounter; J44.9 Chronic obstructive pulmonary disease, unspecified; I11.0 Hypertensive heart disease with heart failure; I50.9 Heart failure, unspecified; I25.2 Old myocardial infarction; Z95.5 Presence of coronary angioplasty implant and graft; Z79.02 Long term (current) use of antithrombotics/antiplatelets; Z86.79 Personal history of other diseases of the circulatory system; Z79.899 Other long term (current) drug therapy; W06.XXXA Fall from bed, initial encounter
CPT/HCPCS: 36415; 70450; 93005; 93010; 99284-25